=== PATIENT | male | born 1985 | race Caucasian/White ===

== ENCOUNTER 2021-10-30 13:15 | Emergency (ER) | payer OTHER ==
[2021-10-30] MEDS ORDERED: LIDOCAINE 5% TOPICAL PATCH TP ONE (13:37)
[2021-10-30] MEDS ORDERED: ACETAMINOPHEN 500 MG TABLET (FP) PO ONE (13:37)
[2021-10-30] MEDS ORDERED: ACETAMINOPHEN 500 MG TABLET (FP) ONE (14:05)
[2021-10-30] MEDS ORDERED: LIDOCAINE 5% TOPICAL PATCH ONE (14:05)
[2021-10-30 14:09] VITALS: BP 112/65; PULSE 55; TEMP 98.5; BMI 23.1
[2021-10-30] MEDS ORDERED: LIDOCAINE PATCH REMOVAL MC SCH (22:00)
== END 2021-10-30 15:24 | disposition home or self-care (01) ==
LOC: FER 13:15
DX: S09.90XA Unspecified injury of head, initial encounter (principal); S13.9XXA Sprain of joints and ligaments of unspecified parts of neck, initial encounter; S60.211A Contusion of right wrist, initial encounter; V47.5XXA Car driver injured in collision with fixed or stationary object in traffic accident, initial encounter
CPT/HCPCS: 71046-TC-FY; 73110-TC-RT-FY; 73560-TC-LT-FY; 99284-25